=== PATIENT | male | born 1950 | race Two or more races ===

== ENCOUNTER → 2024-08-14 | Outpatient (CLI) | payer MEDICARE, MEDICAID, SELFPAY ==
--- NOTE | 2024-08-14 13:00 | XR_ITS ---
Examination: MRI lumbar spine without contrast Date and time of exam: August 14, 2024 1311 hrs. Indications: Lower back pain radiating down both legs 9 months Technique: Multiple MRI axial and sagittal sections lumbar spine. Sagittal T2-weighted images, TR 3500, TE 118 T1 weighted transverse sections, TR 688 T8.5, T2-weighted sagittal sections T1 weighted sagittal sections TR 621, TE 30 T2 axial sections, TR 4, 190, TE 84. Findings: Satisfactory alignment lumbar vertebral bodies on the lateral view Mild to moderate disc narrowing L3-L4, L4-L5 Diffuse lumbar disc desiccation No lumbar fracture L5-S1 3 mm central lumbar disc bulge L4-L5 6 mm central lumbar disc bulge extending to the foraminal regions with mild right L4 ganglionic compression L3-L4 5 mm foraminal disc bulges but no ganglionic compression L2-L3 no disc protrusion L1-L2 no disc protrusion Impression: L4-L5 6 mm central lumbar disc bulge extending to the right foraminal region with mild right L4 ganglionic compression
== END | disposition home or self-care (01) ==
LOC: SMRI 12:21
PROVIDERS: PCP Internal Medicine; Referring Provider Internal Medicine; Visit Provider Internal Medicine
DX: M51.369 Other intervertebral disc degeneration, lumbar region without mention of lumbar back pain or lower extremity pain (principal); G95.20 Unspecified cord compression
CPT/HCPCS: 72148

== ENCOUNTER 2024-11-02 17:19 | Inpatient (IN) | payer MEDICARE, MEDICAID, SELFPAY ==
[2024-11-02 17:30] VITALS: BP 122/73; PULSE 86; RESP 19; TEMP 37.1; O2SAT 96; BMI 28.8
--- NOTE | 2024-11-02 17:35 | XR_ITS ---
Examination: PA lateral chest 2 views TECHNIQUE: Upright PA lateral chest 2 views Exam date and time: November 02, 2024 at 1805 hours Comparison April 22, 2004 INDICATIONS: Shortness of breath coughing fatigue today. FINDINGS: COPD with significant hyperexpansion No major cardiac enlargement Stable granuloma in the left lung Interval bibasilar and lingular segment pneumonia IMPRESSION: COPD Interval bibasilar and lingular segment pneumonia
--- NOTE | 2024-11-02 17:36 | PD.EDRME ---
Rapid Medical Screening Exam RME Arrival date/time: 11/02/24 17:19 74-year-old male with COPD presents to the emergency department today complaints of shortness of breath, cough, fatigue Chief Complaint: Shortness of Breath/Dyspnea Time Seen by Provider: 11/02/24 17:32 Vital signs: Vital Signs Temperature 98.7 F 11/02/24 17:30 Pulse Rate 86 11/02/24 17:30 Respiratory Rate 19 11/02/24 17:30 Blood Pressure 122/73 11/02/24 17:30 Pulse Oximetry (%) 96 11/02/24 17:30 Oxygen Delivery Method Room Air 11/02/24 17:30
[2024-11-02 17:56] LABS: Lactate (Lactic Acid) 1.3 mMol/L (0.4-2.0)
[2024-11-02 17:59] LABS: Basophils # (Auto) 0.1 Thou/mm3 (0.0-0.2); Basophils % (Auto) 1 % (0-2.5); Eosinophils % (Auto) 0 % (0-10); Hematocrit 41.9 % (41.0-53.0); Hemoglobin 14.3 g/dL (13.5-16.0); Immature Granulocytes % (Auto) 3 % (0-0); Immature Granulocytes Auto 0.41 Thou/mm3 (0.00-0.00); Lymphocytes % (Auto) 20 % (10-50); Mean Corpuscular HGB Conc 34.1 g/dl (31.0-37.0); Mean Corpuscular Hemoglobin 32.6 pg (25.0-35.0); Mean Corpuscular Volume 96 fL (80-100); Monocytes # (Auto) 0.9 Thou/mm3 (0.0-0.8); Monocytes % (Auto) 6 % (0-12); Neutrophils % (Auto) 71 % (37-80); Nucleated Red Blood Cell % 0 /100 WBC (0); Platelet Count 266 Thou/mm3 (140-440); RDW Standard Deviation 42.4 fL (35.1-43.9); Red Blood Count 4.38 Miln/mm3 (4.50-5.90); White Blood Count 15.5 Thou/mm3 (3.8-10.6)
[2024-11-02 18:27] LABS: Alanine Aminotransferase 31 U/L (10-49); Albumin, Serum 4.4 gm/dL (3.4-4.8); Albumin/Globulin Ratio 1.5 (1.2-2.2); Alkaline Phosphatase 89 U/L (46-116); Anion Gap 11 (7-16); Aspartate Amino Transferase 29 U/L (0-34); BUN/Creatinine Ratio 14 Ratio (12-20); Bilirubin,Total 0.6 mg/dL (0.3-1.2); Blood Urea Nitrogen 17 mg/dL (9-23); Calcium 9.3 mg/dL (8.3-10.6); Calcium (Corrected) 9.3 mg/dL (8.5-10.1); Carbon Dioxide 24.6 mMol/L (20.0-31.0); Chloride 102 mMol/L (98-107); Creatinine (Component) 1.2 mg/dL (0.6-1.3); Estimated Creatinine Clearance 57.5 mL/min (>60); Glucose 115 mg/dL (74-106); Osmolality,Calculated 278 (275-295); Potassium 3.4 mMol/L (3.4-5.1); Procalcitonin 0.61 ng/ml (0.0-0.49); Sodium 138 mMol/L (136-145); Total Protein 7.4 gm/dL (5.7-8.2); Troponin I < 0.020 ng/mL (0.0-0.045); eGFR > 60 See Note
[2024-11-02 19:04] LABS: Collection Type, Urine Clean Catch
[2024-11-02 19:34] LABS: Bacteria,Urine 2+; Bilirubin,Urine Negative (Negative); Blood,Urine 2+ (Negative); Clarity,Urine Turbid (Clear/Hazy); Color,Urine Yellow (Lt Yel-Yel); Culture Indicated,Urine Yes; Glucose, Urine Negative (Negative); Ketones,Urine Negative (Negative); Leukocyte Esterase,Urine Positive (Negative); Nitrite,Urine Positive (Negative); Protein,Urine 1+ (Neg - Trace); RBC,Urine 7 /hpf (0-3); Specific Gravity,Urine 1.017 (1.001-1.035); Squamous Epithelial Cell,Urine 4 /hpf (0-5); WBC,Urine 98 /hpf (0-5)
--- NOTE | 2024-11-02 20:32 | EDNOTE_ITS ---
ED SOB =RME/HPI General Chief Complaint: Shortness of Breath/Dyspnea Stated Complaint: SOB, Body aches, shaking all over Time Seen by Provider: 11/02/24 17:32 Source: patient and family Arrival date/time: 11/02/24 17:19 Mode of arrival: ambulatory Limitations: no limitations RME / HPI RME / HPI Narrative: 11/02/24 17:19 74-year-old male with COPD presents to the emergency department today complaints of shortness of breath, cough, fatigue. Dr. Stokes?s Main ED Evaluation: 74-year-old Bengali-speaking male with history of COPD who presents to the Emergency Department for further evaluation of shortness of breath, per PCP. A family member provides additional history, reporting that the patient has experienced a fever for the past three days, along with progressive weakness, requiring more assistance than usual to stand up. The patient also experienced one fall during this period. The family also notes episodes of confusion, where the patient has been talking but not making sense at times. In addition, the patient himself reports experiencing painful urination. The patient has a history of chronic mobility issues, including shakiness, difficulty standing due to two bulging discs and chronic bilateral lower extremity nerve discomfort. Related Data Home Medications ?Medication ?Instructions ?Recorded ?Confirmed tamsulosin 0.4 mg capsule 0.4 mg PO BID 04/27/1812/03 finasteride 1 mg tablet 1 mg PO QDAY 07/11/22 Previous Rx's ?Medication ?Instructions ?Recorded ciprofloxacin HCl 500 mg tablet 500 mg PO BID #14 tabs 12/05/23 (Cipro) hydrocodone 5 mg-acetaminophen 325 1 tab PO Q6H PRN pa in #20 tabs 12/05/23 mg tablet Allergies Allergy/AdvReac Type Severity Reaction Status Date / Time No Known Allergies Allergy Verified 11/02/24 17:24 Review of Systems Review of Systems Systems Reviewed: All systems reviewed, normal except as documented Past Medical History Past Medical History NEUROLOGIC: Negative Neurological Disorders or Seizures CARDIAC: Positive Cardiac Disorders and Hypertension (STOP 2018); Negative Congestive Heart Failure, Edema, Cellulitis or Varicose Veins RESPIRATORY: Positive Pneumonia (HOSP 04/05 ALONG WITH KIDNEY STONES PAIN); Negative Chronic Obstructive Pulmonary Disease (COPD), Tuberculosis, Pulmonary Embolism or Sleep Apnea GASTROINTESTINAL: Negative Gastrointestinal Disorders, Hepatitis or Colorectal Cancer GENITOURINARY: Positive Genitourinary Disorders, Kidney Stones and Benign Prostatic Hyperplasia (TAKES MED); Negative Renal Disease or Prostate Cancer REPRODUCTIVE: Negative Testicular Cancer MUSCULOSKELETAL: Positive Musculoskeletal Disorders and Arthritis; Negative Bone Cancer ENDOCRINE: Negative Endocrine Disorders, Diabetes Mellitus Type 1 or Diabetes Mellitus Type 2 HEMATOLOGIC: Negative Blood Disorders OTHER HISTORY: Positive Hospitalization (04/05 ALSO FOR KIDNEY STONE) and Measles; Negative Autoimmune Disease, Shingles, Falls, Blood Transfusions, Blood Transfusion Reaction, Anesthesia Reactions, Organ Transplant, Chemotherapy, MRSA, Chicken Pox, Mumps, Cancer, Colorectal Cancer, Lung Cancer, Prostate Cancer or Testicular Cancer Family History FAMILY HISTORY: Positive Family Gastrointestinal Problems (BROTHER (CIRRHOSIS)) and Family Cancer (BROTHER (LUNG)); Negative Family Psychiatric Problems, Family Respiratory Disorders, Family Cardiac Disorders, Family Surgery (UNKNOWN) or Family Anesthesia Reaction Surgical History SURGICAL: Positive Arthroscopy (MICHAEL KNEES); Negative Cardiac Surgery, Pacemaker, Endocrine Surgery, Ear Surgery, Abdominal Surgery, Joint Replacement, Vasectomy or Organ Transplant Social History SMOKING STATUS: Current some day smoker SUBSTANCE USE: does not use ED Exam Narrative Physical exam: GENERAL APPEARANCE: alert and oriented x 4, well-developed, well-nourished, no acute distress VITALS: All vitals were reviewed and the pulse ox is 96% on room air, which is normal according to my interpretation. HEENT: Normocephalic, atraumatic; pupils equal, round, reactive to light; EOMI; mucous membranes pink, moist; oropharynx clear NECK: Supple LUNGS: Coarse breath sounds throughout, with fine crackles noted at the bilateral lung bases. HEART: Regular rate, regular rhythm; normal S1, S2; no murmurs ABDOMEN: non distended; normal BS; soft, no tenderness, no guarding, no rebound; no masses, no organomegaly, no hernia BACK: no CVA tenderness EXTREMITIES: atraumatic; no edema NEUROLOGIC: awake; alert and oriented x4; cranial nerves II-XII grossly intact; no focal sensory or motor deficits PSYCHIATRIC: appropriate mood and affect SKIN: warm, dry, normal color; no rashes General Limitations: Present no limitations Course Course Course Narrative: CXR is ordered for determining etiology of shortness of breath. Quality Measures none Orders Category Date Time Status Bedside Influenza A&B Antigen Test NOW Care 11/02/24 17:35 Completed Cook Helper Meat STAT Care 11/02/24 20:43 Active EKG (ED ONLY) *Do not use* NOW Care 11/02/24 17:35 Completed IV [Insert IV] NOW Care 11/02/24 20:33 Active Strict Intake and Output Routine Care 11/02/24 20:43 Ordered EKG (ED Only) Stat Exams 11/02/24 17:35 Ordered XR chest 2V Stat Exams 11/02/24 17:35 Completed B-Type Natriuretic Peptide Stat Lab 11/02/24 21:19 Completed Blood Culture (Lab) Stat Lab 11/02/24 17:48 Received CBC Stat Lab 11/02/24 17:45 Completed Comprehensive Metabolic Panel Stat Lab 11/02/24 17:45 Completed LDH (Lactate Dehydrogenase) Stat Lab 11/02/24 21:19 Results Lactate (Lactic Acid) Stat Lab 11/02/24 17:45 Completed Lipase Stat Lab 11/02/24 21:19 Results Magnesium Stat Lab 11/02/24 21:19 Results Partial Thromboplastin Time Stat Lab 11/02/24 17:45 Completed Phosphorous Stat Lab 11/02/24 21:19 Results Procalcitonin Stat Lab 11/02/24 17:45 Completed Prothrombin Time with INR Stat Lab 11/02/24 17:45 Completed Troponin I Stat Lab 11/02/24 17:45 Completed Troponin I Stat Lab 11/02/24 21:19 Results UA, C/S IF [Urinalysis, C/S if Indicated] Stat Lab 11/02/24 18:51 Completed Urine Culture Stat Lab 11/02/24 18:51 Received Sodium Chloride 0.9% 1000 ml [Ns] 1,000 ml Med 11/02/24 20:43 Discontinued IV 999 mls/hr cefTRIAXone [Rocephin] 1,000 mg Med 11/02/24 20:34 Discontinued SODIUM CHLORIDE 0.9% (Popper) [NS 0.9% (Popper)] 50 ml IV X1 Vital Signs Vital signs: Vital Signs Temperature 98.7 F 11/02/24 17:30 Pulse Rate 86 11/02/24 17:30 Respiratory Rate 19 11/02/24 17:30 Blood Pressure 122/73 11/02/24 17:30 Pulse Oximetry (%) 96 11/02/24 17:30 Oxygen Delivery Method Room Air 11/02/24 17:30 Shortness of Breath / Dyspnea MDM Narrative MDM Narrative:: Differential diagnoses include sepsis secondary to pneumonia, urinary tract infection, sepsis with skin infection, or intra-abdominal infection, as well as influenza. 2039: Case discussed with Dr. Luna, hospitalist, who has accepted the patient for admission. Scribe Attestation: I, Emmett Galloway, am scribing for and in the presence of Dr. Stokes. Provider Notation: Although this document has been carefully reviewed, there may still be some phonetic and other typographical errors. These errors are purely grammatical due to imperfections in the software program and should not be construed in any way to compromise the substance of the patient's medical care during this visit. Patient data External records reviewed:: [facility] previous records Clinical information provided by:: patient Social determinants that could affect healthcare access:: none Patient has the following chronic illnesses:: see PMH How is presenting disease/condition affected by chronic disease/condition?: uneffected by Evaluation data The following diagnostics were reviewed and interpreted by me:: lab results and radiology exam(s) Lab and/or radiology exams considered but not ordered:: na Interpretation Summary: I personally reviewed the radiology data and agree with the radiologist's interpretation. Examination: PA lateral chest 2 views Exam date and time: November 02, 2024 at 1805 hours Comparison April 22, 2004 INDICATIONS: Shortness of breath coughing fatigue today. FINDINGS: COPD with significant hyperexpansion No major cardiac enlargement Stable granuloma in the left lung Interval bibasilar and lingular segment pneumonia IMPRESSION: COPD Interval bibasilar and lingular segment pneumonia Medications / Prescriptions Medications or Prescriptions considered but not ordered:: na Medication administrations:: Medication Administration History Acetaminophen (Acetaminophen 325 Mg Tablet) 650 mg PO Q6H PRN PRN Reason: Fever >101.5 Stop: 12/02/24 21:08 Albuterol/Ipratropium (Albuterol/Ipratropium (Duoneb) Rt Roseann 3 Ml Nebu) 3 ml INH Q6HRRT KECIA Stop: 12/02/24 21:34 Enoxaparin Sodium (Enoxaparin Sod Inj 40 Mg/0.4 Ml Syringe) 40 mg SC QDAY KECIA Stop: 11/17/24 08:59 Sodium Chloride (Ns) 1,000 mls @ 75 mls/hr IV .[id number] KECIA Stop: 12/02/24 21:14 Ceftriaxone Sodium 1,000 mg/ (Sodium Chloride) 50 mls @ 100 mls/hr IV QDAY KECIA Stop: 11/10/24 08:59 Azithromycin 500 mg/ Sodium (Chloride) 250 mls @ 250 mls/hr IV QDAY@2100 KECIA Stop: 11/10/24 20:59 Azithromycin 500 mg/ Sodium (Chloride) 250 mls @ 250 mls/hr IV X1 ONE Stop: 11/02/24 22:44 Tamsulosin HCl (Tamsulosin Hcl 0.4 Mg Capsule) 0.4 mg PO BID [facility] Stop: 12/03/24 08:59 Discontinued Medications Ceftriaxone Sodium 1,000 mg/ (Sodium Chloride) 50 mls @ 100 mls/hr IV X1 ONE Stop: 11/02/24 21:03 Last Admin: 11/02/24 21:58 Dose: 100 mls/hr Documented By: JUMANA Sodium Chloride (Ns) 1,000 mls @ 999 mls/hr IV .Q1H1M ONE Stop: 11/02/24 21:43 Last Admin: 11/02/24 21:56 Dose: 999 mls/hr Documented By: JUMANA as above, if any Consultations Consultation(s) initiated? (list below): Yes Consultation #1 (Physician, Specialty, Details): See narrative Time: 20:42 Diagnosis Shortness of Breath Differential Diagnosis: other (see narrative) Most likely diagnosis given after review of the tests above:: see below Admission Indicated Admission indicated?: indicated Admission Request Was there a request for admission?: Yes Admission Attestation Admission request attestation: Discussed case with [] from Hospitalist service regarding admission. Discussed patients ED course, exam findings, labs, and radiology results. The Hospitalist [agrees,declines] to accept the patient for admission. Disposition Plan Disposition Plan: Admit Discharge Plan Plan Patient Disposition: Admit Acute Care w/in Hospital Patient condition on transfer: Stable Problem List Clinical Impression: Bilateral pneumonia, COPD (chronic obstructive pulmonary disease)
[2024-11-02 20:36] VITALS: BP 119/74; PULSE 60; RESP 19; TEMP 36.9; O2SAT 99
--- NOTE | 2024-11-02 21:20 | ESHP_ITS ---
Documentation for date of: 11/02/24 [facility] History of Present Illness History of present illness: This is a 71-year-old male PMHx of COPD, HTN, BPH, nephrolithiasis, presenting with 1 month of progressive fatigue followed by work of dry cough and SOB. He lives with his and his daughter who is the sole ceramic tile installer. He has been complaining of tiring easily doing chores around the house and low energy over the last month. Over the last week he has been having dry cough and SOB, associated with few episodes of fever and chills. He is a extensive history of smoking greater than 40-year pack history, quit recently after being diagnosed with COPD (no home oxygen). Although admits he currently smokes a few cigarettes here and there. He takes home inhaler daily which hasn't been helping over the last few weeks. No recent travel or sick exposure. He mostly stays at home. Denies headaches, falls, trauma, chest pain, palpitations, abdominal pain, N/V/D/C. Has had dark urine over the last 2 weeks but denies dysuria, hematuria, urinary urgency or frequency. ED COURSE: Vitals within normal limit. WBC 15.5 with left shift, otherwise CBC WNL. Calc 0.61. Otherwise chemistry panel normal including troponin, TSH, creatinine, GLUCOSE, lactic acid, and LFTs. UA turbid, with WBC 98, LE/nitrite positive. CXR showed COPD and bibasilar and lingular segment pneumonia. ED gave CEFTRIAXONE x 1. He was admitted for pneumonia. PMHx: COPD, HTN, BPH, nephrolithiasis PSHx: Bilateral knee surgery. MEDS: Inhaler for COPD, and FLOMAX. ALLERGIES: NKA. FHx: First-degree relative with alcoholic cirrhosis, CHF and lung cancer. SH: 40-year pack smoking history, currently smokes occasionally. Previous heavy alcohol use. Denies drug use including marijuana. Exam Vital Signs Temp Pulse Resp BP Pulse Ox O2 Del Method 98.5 F 60 19 119/74 99 Room Air 11/02/24 20:36 11/02/24 20:36 11/02/24 20:36 11/02/24 20:36 11/02/24 20:36 11/02/24 20:36 Narrative Exam GENERAL * Normal appearing elderly male, no apparent distress. HEENT * NCAT.?SERG. Oral mucosa is moist. Patent Nares NECK * Supple, nontender, no thyromegaly, no meningismus, no JVD, no step offs CHEST * RRR, no m/g/r * Wheezing and coarse breath sounds bilaterally. * Symmetrical chest rise. No intercostal subcostal retraction * Atraumatic, nontender, no crepitus, symmetrical expansion. ABDOMEN * Soft, flat, nontender. No guarding/rebound tenderness/masses. * Bowel sounds presents EXTREMITIES * Nontender, no cyanosis, no edema * No edema/cyanosis.? SKIN * Warm and dry, no jaundice/rashes. NEUROMUSCULAR * No lumbar or midline, no CVA, no paraspinal muscle spasm or tenderness. * Moves all 4 extremities well, with full ROM and good CSM. * SIDDIQI x4, CN II-XII grossly intact. * No focal neurologic deficits. PSYCHIATRY * Normal mood and affect, cooperative, no SI or HI or hallucinations. Results: Labs 11/02/24 17:45 11/02/24 17:45 Labs: Short CBC 11/02/24 Range/Units 17:45 WBC 15.5 H (3.8-10.6) Thou/mm3 Hgb 14.3 (13.5-16.0) g/dL Hct 41.9 (41.0-53.0) % Plt Count 266 (140-440) Thou/mm3 BMP 11/02/24 17:45 Sodium 138 Potassium 3.4 Chloride 102 Carbon Dioxide 24.6 BUN 17 Creatinine 1.2 Glucose 115 H Calcium 9.3 Cardiac Enzymes 11/02/24 Range/Units 17:45 Troponin I < 0.020 (0.0-0.045) ng/mL Liver Function 11/02/24 Range/Units 17:45 Total Bilirubin 0.6 (0.3-1.2) mg/dL AST 29 (0-34) U/L ALT 31 (10-49) U/L Alkaline Phosphatase 89 (46-116) U/L Albumin 4.4 (3.4-4.8) gm/dL Urine 11/02/24 Range/Units 18:51 Urine Color Yellow (Lt Yel-Yel) Urine Clarity Turbid A (Clear/Hazy) Urine pH 6.0 (5.0-7.0) Ur Specific Marshall 1.017 (1.001-1.035) Urine Protein 1+ A (Neg - Trace) Urine Glucose (UA) Negative (Negative) Quality Measures Quality Measures none Advance care planning discussed with:: patient Medications Home Medications and Allergies Home Medications ?Medication ?Instructions ?Recorded ?Confirmed ?Type tamsulosin 0.4 mg capsule 0.4 mg PO BID 04/27/1812/03 History finasteride 1 mg tablet 1 mg PO QDAY 07/11/22 History Allergies Allergy/AdvReac Type Severity Reaction Status Date / Time No Known Allergies Allergy Verified 11/02/24 17:24 Visit Medications Acetaminophen (Acetaminophen 325 Mg Tablet) 650 mg PO Q6H PRN PRN Reason: Fever >101.5 Stop: 12/02/24 21:08 Enoxaparin Sodium (Enoxaparin Sod Inj 40 Mg/0.4 Ml Syringe) 40 mg SC QDAY KECIA Stop: 11/17/24 08:59 Sodium Chloride (Ns) 1,000 mls @ 999 mls/hr IV .Q1H1M ONE Stop: 11/02/24 21:43 Sodium Chloride (Ns) 1,000 mls @ 75 mls/hr IV .[id number] KECIA Stop: 12/02/24 21:14 Ceftriaxone Sodium 1,000 mg/ (Sodium Chloride) 50 mls @ 100 mls/hr IV QDAY KECIA Stop: 11/10/24 08:59 Azithromycin 500 mg/ Sodium (Chloride) 250 mls @ 250 mls/hr IV QDAY KECIA Stop: 11/09/24 21:10 Discontinued Medications Ceftriaxone Sodium 1,000 mg/ (Sodium Chloride) 50 mls @ 100 mls/hr IV X1 ONE Stop: 11/02/24 21:03 Assessment & Plan Plan In summary: 74-year-old male with PMHx of COPD (no home oxygen), HTN, BPH, nephrolithiasis, presenting with shortness of breath and cough. Admitted for pneumonia. Community-acquired pneumonia COPD Presenting with 1 month of fatigue, SOB, cough and fever over the last week. Diagnosed with COPD last year, no home oxygen, uses inhaler. Wheezing and coarse breath sound bilaterally on exam. Has leukocytosis and elevated PRO-MARIANGEL on admission. CXR showed pneumonia bilaterally. PSI/PORT score indicates Risk Class III, 0.9-2.8% mortality. Will admit given history of COPD and extensive pneumonia on x-ray. ? Continue CEFTRIAXONE and AZITHROMYCIN (11/02 to present) ? Continue DuoNebs q.6h. ? Daily labs ? Pending cultures ? Pending influenza, COVID Asymptomatic UTI UA positive for WBCs, LE, nitrites. Complains of dark urine for 2+ weeks, likely dehydrational. No dysuria, hematuria, urinary urgency or frequency. ? Continue NS maintenance at 75 cc/H ? Covered with CEFTRIAXONE as above ? Pending urine culture BPH ? Continued home TAMSULOSIN 0.4 mg BID. Tobacco use 40+ smoking history, quit when he was diagnosed with COPD last year. Currently smokes 1 to 2 cigarettes every other day. First-degree relative (brother) with lung cancer. Currently working on quitting smoking. ? Recommended tobacco cessation ? Likely will need a NICOTINE patch Hx nephrolithiasis Follow-up with urology outpatient. Currently asymptomatic. No indication for intervention at this time. Health maintenance Diet: Cardiac GI prophylaxis: Not indicated DVT prophylaxis: LOVENOX Antibiotics: CEFTRIAXONE and AZITHROMYCIN CODE STATUS: Full code Disposition: Treating pneumonia. Patient case was discussed with attending, Ramon Luna MD. Yolis Beauchamp DO PGYI Attending Provider Attestation/Addendum Pt was evaluated and plan formulated together with the housestaff team. I have reviewed the residents note above and agree with most of its content. Please refer to the residents note for additional details.
--- NOTE | 2024-11-02 21:26 | EVENTNT_ITS ---
Documentation for date of: 11/02/24 Event Note Event Note: A 74-year-old male presented to the ER with the chief complaint of progressive weakness, difficulty standing, and a recent fall. The patient has been experiencing symptoms for approximately a week, including generalized weakness, loss of appetite, fever for the first three days, chills, and unsteady gait requiring assistance. He denies significant cough but has had persistent diarrhea. His family reports he has been feeling cold and has had intermittent confusion, including speaking incoherently at times. He has also noted dysuria. There are no reports of chest pain or significant shortness of breath. The patient has a history of COPD, hypertension, and arthritis. He has undergone a hernia repair, multiple knee surgeries, treatment for kidney stones, and a prostatectomy. He is currently on medication for hypertension but does not use home oxygen, relying solely on an inhaler for COPD management. He has a significant smoking history of approximately 57 years but has recently reduced consumption to occasional cigarettes with an attempt to quit. He does not drink alcohol. His functional status has declined, requiring increased assistance with mobility due to chronic lower extremity discomfort attributed to bulging discs and nerve issues. In the Emergency Department, the patient?s vital signs were recorded as temperature 98.7?F, heart rate 86 bpm, respiratory rate 19, and blood pressure 122/73 mmHg. Laboratory results showed an elevated WBC of 15.5, hemoglobin 14.3, platelets 266, BUN 17, creatinine 1.2, and procalcitonin 0.61. Urinalysis revealed turbid urine with WBC 98 and RBC 7. Imaging demonstrated findings consistent with COPD and interval development of bibasilar and lingular segment pneumonia. The patient was admitted for further management. #Sepsis secondary to pneumonia and urinary tract infection * Assessment: The patient presents with generalized weakness, fever, chills, intermittent confusion, and dysuria, which, along with leukocytosis (WBC 15.5), elevated procalcitonin (0.61), and imaging findings of pneumonia, suggest an infectious process. Urinalysis findings of turbid urine with WBC 98 and RBC 7 indicate a concurrent UTI. Given his age, functional decline, and COPD history, he is at higher risk for complications. The absence of significant hypoxia is reassuring but requires monitoring. * Plan: * Initiate broad-spectrum IV antibiotics (ceftriaxone plus azithromycin). * Continue supportive care with IV fluids to optimize perfusion and hydration. * Monitor for signs of worsening sepsis. * Obtain blood and urine cultures. #Acute on chronic COPD exacerbation * Assessment: The patient?s pneumonia and systemic inflammatory response may contribute to a COPD exacerbation. His history of COPD and smoking increases his risk. Imaging showed findings consistent with COPD. * Plan: * Continue inhaled bronchodilator therapy (Duoneb). * Consider systemic glucocorticoids. * Monitor oxygen requirements; maintain SpO2 between 88?92%. * Encourage smoking cessation support. #Hypertension (well-controlled) * Assessment: No reported hypertensive urgency or symptoms; BP stable at 122/73 mmHg in ED. * Plan: * Continue home antihypertensive regimen. * Monitor BP trends during hospitalization, adjusting medications if needed. #Smoking history with recent reduction * Assessment: Long-standing history of smoking with recent efforts to quit; significant risk factor for COPD and pneumonia. * Plan: * Provide smoking cessation counseling and nicotine replacement therapy as needed. * Reinforce long-term benefits of cessation for respiratory and overall health. DVT porphylaxis: Lovenox
[2024-11-02 21:44] VITALS: PULSE 95
[2024-11-02 21:44] LABS: INR 1.1 (0.9-1.3); Partial Thromboplastin Time 30.7 Seconds (22.0-36.0); Prothrombin Time 11.8 Seconds (9.0-12.2)
[2024-11-02 21:54] LABS: B-Type Natriuretic Peptide < 20 pg/mL (0-100)
[2024-11-02] MEDS: SODIUM CHLORIDE 0.9% 1000 ML 1,000 ML 999 ML IV (21:56)
[2024-11-02] MEDS: cefTRIAXone 1,000 MG in SODIUM CHLORIDE 0.9% (Popper) 50 ML 100 MG IV (21:58)
[2024-11-02 22:03] LABS: Lipase 34 U/L (12-53); Magnesium 1.9 mg/dL (1.6-2.6); Phosphorous 1.5 mg/dL (2.4-5.1); Troponin I < 0.020 ng/mL (0.0-0.045)
[2024-11-02 22:12] VITALS: BP 114/74; PULSE 88; RESP 19; TEMP 37.8; O2SAT 99
[2024-11-02] MEDS: ALBUTEROL/IPRATROPIUM (Duoneb) RT SOL 3 ML NEBU INH (22:12)
[2024-11-02 22:18] VITALS: PULSE 88; RESP 18; O2SAT 92
[2024-11-02 22:30] LABS: LDH (Lactate Dehydrogenase) 203 U/L (120-246)
[2024-11-02] MEDS: AZITHROMYCIN INJ 500 MG in SODIUM CHLORIDE 0.9% 250 ML 250 ML 250 MG IV (22:36)
[2024-11-02] MEDS: SODIUM CHLORIDE 0.9% 1000 ML 1,000 ML 75 ML IV (23:51)
[2024-11-03] VITALS (10 sets, daily range): BP systolic 109–139; BP diastolic 65–78; PULSE 64–86; RESP 16–20; TEMP 36.1–37.1; O2SAT 88–97; BMI 29.4; BMI 29.2
[2024-11-03] MEDS: ALBUTEROL/IPRATROPIUM (Duoneb) RT SOL 3 ML NEBU INH ×4 (00:15→18:29)
[2024-11-03 05:23] LABS: Basophils # (Auto) 0.1 Thou/mm3 (0.0-0.2); Basophils % (Auto) 1 % (0-2.5); Eosinophils % (Auto) 0 % (0-10); Hematocrit 35.8 % (41.0-53.0); Hemoglobin 12.3 g/dL (13.5-16.0); Immature Granulocytes % (Auto) 4 % (0-0); Immature Granulocytes Auto 0.59 Thou/mm3 (0.00-0.00); Lymphocytes # (Auto) 2.9 Thou/mm3 (1.0-4.8); Lymphocytes % (Auto) 18 % (10-50); Mean Corpuscular HGB Conc 34.4 g/dl (31.0-37.0); Mean Corpuscular Volume 96 fL (80-100); Monocytes # (Auto) 1.1 Thou/mm3 (0.0-0.8); Monocytes % (Auto) 7 % (0-12); Neutrophils # (Auto) 11.1 Thou/mm3 (1.8-7.7); Neutrophils % (Auto) 70 % (37-80); Nucleated Red Blood Cell % 0 /100 WBC (0); Platelet Count 259 Thou/mm3 (140-440); RDW Standard Deviation 42.5 fL (35.1-43.9); Red Blood Count 3.73 Miln/mm3 (4.50-5.90); White Blood Count 15.8 Thou/mm3 (3.8-10.6)
[2024-11-03 05:45] LABS: Anion Gap 11 (7-16); BUN/Creatinine Ratio 13 Ratio (12-20); Blood Urea Nitrogen 14 mg/dL (9-23); Calcium 8.5 mg/dL (8.3-10.6); Carbon Dioxide 24.4 mMol/L (20.0-31.0); Chloride 106 mMol/L (98-107); Creatinine (Component) 1.1 mg/dL (0.6-1.3); Estimated Creatinine Clearance 61.3 mL/min (>60); Glucose 117 mg/dL (74-106); Osmolality,Calculated 282 (275-295); Sodium 141 mMol/L (136-145); eGFR > 60 See Note
[2024-11-03] MEDS: TAMSULOSIN HCL 0.4 MG CAPSULE PO ×2 (08:12→20:16)
[2024-11-03] MEDS: ENOXAPARIN SOD INJ 40 MG/0.4 ML SYRINGE SC (08:12)
[2024-11-03] MEDS: POTASSIUM CHL 10 mEq IVPB 10 MEQ/100 ML BAG 100 MEQ IV ×4 (08:13→12:38)
[2024-11-03] MEDS: POTASSIUM PHOS 22.5 MMOL in SODIUM CHLORIDE 0.9% 500 ML 500 ML 82.778 MMOL IV (09:13)
--- NOTE | 2024-11-03 09:57 | XR_ITS ---
Examination: CT abdomen and pelvis without contrast. Coronal 3-D reconstructions. Sagittal 2-D reconstructions. Date and time of exam:November 03, 2024 1142 hours Comparison April 02, 2022 INDICATIONS: Epigastric pain beginning 5 days ago CTDI: vol (mGy): 8.65 DLP: (mGycm): 489 Technique: Axial images of the abdomen have been obtained, 3 mm slice thickness Intravenous contrast material has not been administered. Low dose protocols were performed. One or more of the following dose reduction techniques were used; automated exposure control, adjustment of the mA and/or KV according to patient size, use of iterative reconstruction technique. Findings: Pneumonia in the lingular segment left upper lobe and left base Significant fatty infiltration throughout the liver No gallstones Spleen is not enlarged No pancreatic or adrenal mass Multiple right renal cysts No hydronephrosis or ureteral calculi Abdominal aortic calcification no aneurysmal dilatation Normal appendix Small bowel loops mildly distended Small anterior bladder diverticulum anteriorly, 25 mm No prostatomegaly Fat-containing inguinal hernias IMPRESSION: Pneumonia in the lingular segment left upper lobe and left base Mild small bowel ileus Consider hepatobiliary sonography follow-up
[2024-11-03] MEDS: NAPH,KPH MBDB 1 PACKET (1.5 GM) PO (10:03)
[2024-11-03] MEDS: POTASSIUM CHLORIDE 20 mEq TABCR 40 MEQ PO (10:03)
--- NOTE | 2024-11-03 10:16 | PC.SS ---
Initial assessment: Patient is a 74-year-old male admitted for pneumonia. The patient is Vietnamese speaking. Alert and oriented to self, place and situation. The patient confirmed home demographic information. Patient informs he lives with his daughter Shalini and spouse Karol at daughter's home. Patient assigned daughterShalini as his emergency contact. The patient informs he is primary independent with ADL's. Patient informs he has a cane at home if needed. Patient denies having any home oxygen. Patient PCP is Dr. Tex Lui. Pharmacy is [facility] in [place]. The discharge plan was discussed and is to return home, family able to transport home. D/c plan: Home Next of Kin: daughterShalini
--- NOTE | 2024-11-03 11:15 | PC.SS ---
SS update: Received a call from PT Felix regarding outpatient PT referral for the patient. PT referral faxed out of behalf of the patient for outpatient PT services.
--- NOTE | 2024-11-03 13:55 | PC.PT ---
PT eval only. Patient is safe to ambulate in the fletcher and to the bathroom while using the FWW and 1 staff assist for safety. RN made aware.
--- NOTE | 2024-11-03 14:47 | PC.SS ---
Rounding note: pending CT. Possible d/c tomorrow.
--- NOTE | 2024-11-03 15:31 | PD.RESPRO ---
Documentation for date of: 11/03/24 Subjective Subjective Interval history: Patient was admitted overnight for pneumonia complicated by COPD exacerbation. Morning labs showed mild increase in WBC from 15.5-15.8, hemoglobin down trended from 14.3-12.3. During physical exam this morning patient was complaining of dysuria and suprapubic pain. Having history of nephrolithiasis, abdomen pelvis CT was ordered which indicated multiple right renal cysts, no prostatomegaly, no hydronephrosis or ureteral calculi. Exam Vital Signs Temp Pulse Resp BP Pulse Ox O2 Del Method 97.5 F 69 16 109/70 97 Room Air 11/03/24 12:00 11/03/24 12:11/03/24 12:11/03/24 12:11/03/24 12:11/03/24 12:00 Narrative Exam Constitutional: well-developed, well-nourished, in no acute distress, lying in bed HEENT: NCAT, EOMI, reactive round pupils b/l, patent nares b/l, moist mucous membranes Lung: CTAB, no wheezing, no rhonchi Heart: Regular S1S2, no murmurs, gallops, or rubs Abdomen: Soft, non-distended, mild lower abdomen tenderness on palpation, bowel sounds present Extremities: No cyanosis, clubbing, or edema, LE pulses present b/l Neurologic: No focal sensory or motor deficits noted, AOx3, appropriate affect Skin: Warm, dry, no lesions or rashes noted Objective Labs 11/04/24 04:28 11/04/24 04:28 Labs: Laboratory Results - last 24 hr 11/02/24 11/02/24 11/02/24 17:45 18:51 21:19 WBC 15.5 H RBC 4.38 L Hgb 14.3 Hct 41.9 MCV 96 MCH 32.6 MCHC 34.1 RDW Std Deviation 42.4 Plt Count 266 Neut % (Auto) 71 Lymph % (Auto) 20 [place] % (Auto) 6 Eos % (Auto) 0 Baso % (Auto) 1 Neut # (Auto) 11.0 H Lymph # (Auto) 3.0 [place] # (Auto) 0.9 H Eos # (Auto) 0.0 Baso # (Auto) 0.1 Immature Gran # (Auto) 0.41 H Absolute Nucleated RBC 0.00 Immature Gran % 3 H Nucleated RBC % 0 PT 11.8 INR 1.1 APTT 30.7 Sodium 138 Potassium 3.4 Chloride 102 Carbon Dioxide 24.6 Anion Gap 11 BUN 17 Creatinine 1.2 Estim Creat Clear Calc 57.5 L eGFR > 60 BUN/Creatinine Ratio 14 Glucose 115 H Calculated Osmolality 278 Lactic Acid 1.3 Calcium 9.3 Corrected Calcium 9.3 Phosphorus 1.5 L Magnesium 1.9 Total Bilirubin 0.6 AST 29 ALT 31 Alkaline Phosphatase 89 Lactate Dehydrogenase 203 Troponin I < 0.020 < 0.020 B-Natriuretic Peptide < 20 Total Protein 7.4 Albumin 4.4 Globulin 3.0 Albumin/Globulin Ratio 1.5 Lipase 34 Procalcitonin 0.61 H Ur Collection Type Clean Catch Urine Color Yellow Urine Clarity Turbid A Urine pH 6.0 Ur Specific [place] 1.017 Urine Protein 1+ A Urine Glucose (UA) Negative Urine Ketones Negative Urine Blood 2+ A Urine Nitrite Positive Urine Bilirubin Negative Urine Urobilinogen (Auto) 8.0 Ur Leukocyte Esterase Positive Urine RBC 7 H Urine WBC 98 H Ur Squamous Epith Cells 4 Urine Bacteria 2+ A Ur Culture Indicated? Yes 11/03/24 04:34 WBC 15.8 H RBC 3.73 L Hgb 12.3 L D Hct 35.8 L MCV 96 MCH 33.0 MCHC 34.4 RDW Std Deviation 42.5 Plt Count 259 Neut % (Auto) 70 Lymph % (Auto) 18 [place] % (Auto) 7 Eos % (Auto) 0 Baso % (Auto) 1 Neut # (Auto) 11.1 H Lymph # (Auto) 2.9 [place] # (Auto) 1.1 H Eos # (Auto) 0.0 Baso # (Auto) 0.1 Immature Gran # (Auto) 0.59 H Absolute Nucleated RBC 0.00 Immature Gran % 4 H Nucleated RBC % 0 PT INR APTT Sodium 141 Potassium 3.0 L Chloride 106 Carbon Dioxide 24.4 Anion Gap 11 BUN 14 Creatinine 1.1 Estim Creat Clear Calc 61.3 eGFR > 60 BUN/Creatinine Ratio 13 Glucose 117 H Calculated Osmolality 282 Lactic Acid Calcium 8.5 Corrected Calcium Phosphorus Magnesium Total Bilirubin AST ALT Alkaline Phosphatase Lactate Dehydrogenase Troponin I B-Natriuretic Peptide Total Protein Albumin Globulin Albumin/Globulin Ratio Lipase Procalcitonin Ur Collection Type Urine Color Urine Clarity Urine pH Ur Specific [place] Urine Protein Urine Glucose (UA) Urine Ketones Urine Blood Urine Nitrite Urine Bilirubin Urine Urobilinogen (Auto) Ur Leukocyte Esterase Urine RBC Urine WBC Ur Squamous Epith Cells Urine Bacteria Ur Culture Indicated? Quality Measures Quality Measures none Advance care planning discussed with:: other Assessment & Plan Assessment Current Active Medications: Generic Name Dose Route Start Last Admin Trade Name Freq PRN Reason Stop Dose Admin Acetaminophen 650 mg 11/02/24 21:09 Acetaminophen 325 Mg Tablet PO 12/02/24 21:08 Q6H PRN Fever >101.5 Albuterol/Ipratropium 3 ml 11/02/24 21:35 11/03/24 12:25 Albuterol/Ipratropium (Duoneb) Rt Roseann 3 Ml Nebu INH 12/02/24 21:34 3 ml Q6HRRT KECIA Administration Enoxaparin Sodium 40 mg 11/03/24 09:00 11/03/24 08:12 Enoxaparin Sod Inj 40 Mg/0.4 Ml Syringe SC 11/17/24 08:59 40 mg QDAY KECIA Administration Sodium Chloride 1,000 mls @ 75 mls/hr 11/02/24 21:15 11/02/24 23:51 Ns IV 12/02/24 21:14 75 mls/hr .[id number] KECIA Administration Ceftriaxone Sodium 1,000 mg/ 50 mls @ 100 mls/hr 11/03/24 21:00 Sodium Chloride IV 11/10/24 20:59 QDAY@2100 KECIA Azithromycin 500 mg/ Sodium 250 mls @ 250 mls/hr 11/03/24 21:00 Chloride IV 11/10/24 20:59 QDAY@2100 KECIA Tamsulosin HCl 0.4 mg 11/03/24 09:00 11/03/24 08:12 Tamsulosin Hcl 0.4 Mg Capsule PO 12/03/24 08:59 0.4 mg BID KECIA Administration Plan 74-year-old male with PMHx of COPD (no home oxygen), HTN, BPH, nephrolithiasis, presenting with shortness of breath and cough. Admitted for pneumonia. #Community-acquired pneumonia #COPD Presenting with 1 month of fatigue, SOB, cough and fever over the last week. Diagnosed with COPD last year, no home oxygen, uses inhaler. Wheezing and coarse breath sound bilaterally on exam. Has leukocytosis and elevated PRO-MARIANGEL on admission. CXR showed pneumonia bilaterally. PSI/PORT score indicates Risk Class III, 0.9-2.8% mortality. Will admit given history of COPD and extensive pneumonia on x-ray. ? Continue CEFTRIAXONE and AZITHROMYCIN (11/02 to present) ? Continue DuoNebs q.6h. ? Daily labs ? Pending cultures #Complicated UTI UA positive for WBCs, LE, nitrites. Complains of dark urine for 2+ weeks, likely dehydrational. No dysuria, hematuria, urinary urgency or frequency. ? Acetaminophen for pain and fever ? Continue with CEFTRIAXONE as above ? Pending urine culture #BPH Abdomen pelvis CT was negative for prostatomegaly ? Restart home TAMSULOSIN 0.4 mg BID. #Tobacco use 40+ smoking history, quit when he was diagnosed with COPD last year. Currently smokes 1 to 2 cigarettes every other day. First-degree relative (brother) with lung cancer. Currently working on quitting smoking. ? Recommended tobacco cessation ? Likely will need a NICOTINE patch #Hx nephrolithiasis Abdomen pelvis CT was negative for renal calculi and hydronephrosis ? Follow-up with urology outpatient. ? No indication for intervention at this time. Health Maintenance Dispo: Patient admitted for complicated UTI and pneumonia requiring IV antibiotics Diet: Cardiac diet DVT/PPx: Lovenox GI ppx: Protonix Lines: PIV Code Status: Full code This patient care was discussed with my attending Dr. Bryan Gustafson MD PGY-2 Disclaimer: Minor errors in livestock farm workers may be present since this note was dictated by speech recognition software. Attending Provider Attestation/Addendum Jody Mitchell, , attest that I was physically present for the browning portions of the service and evaluated the patient with the resident and I reviewed and discussed the case with the resident and agree with the resident's findings and plans of care as documented above Patient seen and evaluated this AM. Patient denies any chest pain or shortnesss of breath. at bedside. Patient is on room air and in no respiratory distress. Patient states he is feeling improved, but having progressive weakness. Patient reported having dysuria for the past week. Pt has had hx of UTIs and nephrolithiasis in the past. Will order CT of abdomen to rule out any obstruction or stones. He also reports some abdominal pain. Will continue with IV abx and await final urine cultures.
[2024-11-03] MEDS: cefTRIAXone 1,000 MG in SODIUM CHLORIDE 0.9% (Popper) 50 ML 100 MG IV (20:35)
[2024-11-03] MEDS: SODIUM CHLORIDE 0.9% 1000 ML 1,000 ML 75 ML IV (20:38)
[2024-11-03] MEDS: AZITHROMYCIN INJ 500 MG in SODIUM CHLORIDE 0.9% 250 ML 250 ML 250 MG IV (22:05)
[2024-11-04] VITALS (16 sets, daily range): BP systolic 109–143; BP diastolic 56–93; PULSE 65–88; RESP 13–22; TEMP 36.2–36.6; O2SAT 92–98
--- NOTE | 2024-11-04 | XR_ITS ---
Examination: Ultrasound-guided needle placement right basilic vein. Dual-lumen central line placement (PICC line). Fluoroscopy AP chest, portable, single view Exam date and time:November 04, 2024 1106 hours INDICATIONS: Need for long-term intravenous antibiotic therapy A timeout was completed verifying correct patient, procedure, site, positioning Informed consent provided Technique: The patient's site was prepped and draped in sterile fashion. Maximum Sterile Barrier Technique used including cap, mask, sterile gown, sterile gloves, and sterile full body drape. If ultrasound technique used: sterile gel and sterile probe covers. Hand Hygiene performed using proper scrub, soap and water, or alcohol-based hand rub. Ultrasound site right apparatus utilized to confirm patency of the right basilic vein Utilizing ultrasonographic guidance successful 21-gauge needle puncture into the right basilic vein Ultrasound images recorded and stored. 5 cc 1% lidocaine administered for local anesthetic. Successful micropuncture with a 21-gauge needle is performed. 0.18 wire guide is then introduced into the SVC under fluoroscopic guidance. Dual-lumen catheter dilator is then introduced, followed by the catheter in the SVC and proper position under fluoroscopic guidance. Successful aspiration of blood and flushing with heparinized saline is then performed in the 2 venous limbs. The catheter sutured in place. Findings: Under fluoroscopy, the tip of the catheter is in good position in the vena cava. Portable chest x-ray, post line placement is ordered. Estimated blood loss 3 cc The patient tolerated the procedure well and was in stable and satisfactory condition at completion of the procedure Impression: Successful ultrasound-guided needle placement right basilic vein Successful placement of dual lumen central line, percutaneous Fluoroscopy 0.1 minute radiation dose 1.18 milligray 1 fluoroscopic chest film. AP chest completion procedure demonstrates satisfactory position central line. May use central line.
[2024-11-04] MEDS: ALBUTEROL/IPRATROPIUM (Duoneb) RT SOL 3 ML NEBU INH ×4 (01:01→18:55)
[2024-11-04 05:30] LABS: Basophils # (Auto) 0.1 Thou/mm3 (0.0-0.2); Basophils % (Auto) 1 % (0-2.5); Eosinophils # (Auto) 0.1 Thou/mm3 (0.0-0.5); Eosinophils % (Auto) 1 % (0-10); Hemoglobin 11.6 g/dL (13.5-16.0); Immature Granulocytes % (Auto) 8 % (0-0); Immature Granulocytes Auto 0.75 Thou/mm3 (0.00-0.00); Lymphocytes # (Auto) 3.1 Thou/mm3 (1.0-4.8); Lymphocytes % (Auto) 32 % (10-50); Mean Corpuscular HGB Conc 34.1 g/dl (31.0-37.0); Mean Corpuscular Hemoglobin 32.5 pg (25.0-35.0); Mean Corpuscular Volume 95 fL (80-100); Monocytes # (Auto) 0.7 Thou/mm3 (0.0-0.8); Monocytes % (Auto) 7 % (0-12); Neutrophils # (Auto) 4.8 Thou/mm3 (1.8-7.7); Neutrophils % (Auto) 50 % (37-80); Nucleated Red Blood Cell % 0 /100 WBC (0); Platelet Count 201 Thou/mm3 (140-440); RDW Standard Deviation 42.6 fL (35.1-43.9); Red Blood Count 3.57 Miln/mm3 (4.50-5.90); White Blood Count 9.5 Thou/mm3 (3.8-10.6)
[2024-11-04 06:32] LABS: Anion Gap 12 (7-16); BUN/Creatinine Ratio 9 Ratio (12-20); Blood Urea Nitrogen 8 mg/dL (9-23); Calcium 8.5 mg/dL (8.3-10.6); Chloride 110 mMol/L (98-107); Creatinine (Component) 0.9 mg/dL (0.6-1.3); Estimated Creatinine Clearance 74.9 mL/min (>60); Glucose 114 mg/dL (74-106); Osmolality,Calculated 286 (275-295); Potassium 3.4 mMol/L (3.4-5.1); Sodium 144 mMol/L (136-145); eGFR > 60 See Note
[2024-11-04] MEDS: POTASSIUM CHLORIDE 10% 20 MEQ/15 ML UDC PO (08:59)
[2024-11-04] MEDS: NICOTINE PATCH 14 MG/24 HR PATCH.TD24 TOP (08:59)
[2024-11-04] MEDS: ENOXAPARIN SOD INJ 40 MG/0.4 ML SYRINGE SC (08:59)
[2024-11-04] MEDS: TAMSULOSIN HCL 0.4 MG CAPSULE PO ×2 (08:59→21:24)
[2024-11-04 10:19] LABS: Magnesium 1.8 mg/dL (1.6-2.6)
[2024-11-04] MEDS: HEPARIN SOD LOCK SYR 100 UNIT/ML 500 UNIT STFIELD (11:52)
[2024-11-04] MEDS: LIDOCAINE INJ PF 1% 30 ML VIAL 5 ML INFL (11:52)
--- NOTE | 2024-11-04 12:00 | PC.SS ---
Follow up note: SS spoke to dtrShalini and informed her pt is requiring IV antibiotic until 11-10-24. Dtr states she can be taught how to administer IV antibiotic. Dtr states she has preference for HH Services. SS provided dtr with SS phone number to contact once she has the name of the HH agency she preferrers.
--- NOTE | 2024-11-04 12:15 | PC.NURSE ---
Gave report to Papa DAWN, Papa assumed care.
--- NOTE | 2024-11-04 12:27 | PC.NURSE ---
1202 patient is awake alert, breathing unlabored, s/p picc line insertion to right upper arm, report has been given to Niko RN, patient transferred to [facility] room 356. May use picc line per MD
--- NOTE | 2024-11-04 12:44 | PC.SS ---
Addendum entered by January Yates 11/04/24 13:46: SS has sent DME order for wheelchair and commode using [facility]. DME order for home O2 is pending O2 testing from bedside nurse. Original Note: SS met with pt and his . Pt is currently on 2 liters of O2. SS met with bedside nursePapa and explained pt is requiring O2 testing to qualify for home O2.
[2024-11-04] MEDS: MEROPENEM INJ 1,000 MG in SODIUM CHLORIDE 0.9% (Popper) 50 ML 100 MG IV ×2 (12:46→21:25)
--- NOTE | 2024-11-04 13:22 | PC.CC ---
Addendum entered and electronically signed by Caryn De Anda [facility] 11/05/24 14:50: Notified [facility] of discharge and sent discharge summary. SOC 11/06 Addendum entered and electronically signed by Caryn De Anda [facility] 11/05/24 11:17: Updated [facility] and [facility] on discharge ordered for today. Addendum entered and electronically signed by Caryn De Anda [facility] 11/04/24 13:56: Discussed HH options with Yolie herndon who selected [facility]. Booked [facility] and [facility] Original Note: [facility] has accepted patient for [facility]x. Family's HH preference is [facility] but they are unable to accept due to staffing. Referrals sent to all facilities.
--- NOTE | 2024-11-04 13:48 | ESPR_ITS ---
<Statement entered by Alexey uGstafson MD - 11/05/24 07:38> I discussed with and supervised the international marketing coordinator physician involved in the care of this patient. Patient assessment and plan was discussed with entire medicine team, including my attending. I agree with the assessment and plan as documented by international marketing coordinator doctor. Patient care was discussed with my attending physician Dr. Bryan Gustafson, PGY-2 Documentation for date of: 11/04/24 Subjective Subjective Interval history: Patient was seen and examined at bedside this AM. No acute exents overnight. Patient tolerating diet, adequate urine output and mentation is at baseline. Patient endorses improvement of fatigue. However patient says he developed diarrhea overnight, watery, 6 episodes, green and sticky. Urine culture from 11/02 grew ESBL. Discontinue ceftriaxone and azithromycin. Started patient on meropenem 1 g IV Q8 hourly Will send stool sample for C. difficile, WBCs and culture. Exam Vital Signs Temp Pulse Resp BP Pulse Ox O2 Del Method O2 Flow Rate 98 F 74 20 130/73 98 Room Air 2 11/04/24 11:06 11/04/24 12:27 11/04/24 12:27 11/04/24 12:00 11/04/24 12:27 11/04/24 12:00 11/04/24 12:27 Narrative Exam Constitutional Alert, oriented x 3 and comfortable. Elderly male HEENT Vision grossly intact. Patent nares. Trachea midline Respiratory Chest normal on inspection and clear auscultation bilaterally Cardiovascular S1 and S2 audible, RRR. No murmurs carotid bruit. No gross JVD. Abdominal Soft and non tender to palpation in all quadrants. BS + Genitourinary No bladder tenderness, no flank pain. Normal to palpation Musculoskeletal Extremities tone within normal limits. No LE edema. Neurological CN II - XII grossly intact. Extremity motor and sensation grossly intact. Skin Warm, dry and intact. No apparent lesions. Psychiatric Patient has good affect, is cooperative Objective Labs 11/04/24 04:28 11/04/24 04:28 Labs: Laboratory Results - last 24 hr 11/04/24 04:28 WBC 9.5 D RBC 3.57 L Hgb 11.6 L Hct 34.0 L MCV 95 MCH 32.5 MCHC 34.1 RDW Std Deviation 42.6 Plt Count 201 D Neut % (Auto) 50 Lymph % (Auto) 32 [place] % (Auto) 7 Eos % (Auto) 1 Baso % (Auto) 1 Neut # (Auto) 4.8 Lymph # (Auto) 3.1 [place] # (Auto) 0.7 Eos # (Auto) 0.1 Baso # (Auto) 0.1 Immature Gran # (Auto) 0.75 H Absolute Nucleated RBC 0.00 Immature Gran % 8 H Nucleated RBC % 0 Sodium 144 Potassium 3.4 Chloride 110 H Carbon Dioxide 22.0 Anion Gap 12 BUN 8 L Creatinine 0.9 Estim Creat Clear Calc 74.9 eGFR > 60 BUN/Creatinine Ratio 9 L Glucose 114 H Calculated Osmolality 286 Calcium 8.5 Phosphorus 3.0 Magnesium 1.8 Quality Measures Quality Measures none Advance care planning discussed with:: patient Assessment & Plan Assessment Current Active Medications: Generic Name Dose Route Start Last Admin Trade Name Freq PRN Reason Stop Dose Admin Acetaminophen 650 mg 11/02/24 21:09 Acetaminophen 325 Mg Tablet PO 12/02/24 21:08 Q6H PRN Fever >101.5 Albuterol/Ipratropium 3 ml 11/02/24 21:35 11/04/24 12:27 Albuterol/Ipratropium (Duoneb) Rt Roseann 3 Ml Nebu INH 12/02/24 21:34 3 ml Q6HRRT KECIA Administration Enoxaparin Sodium 40 mg 11/03/24 09:00 11/04/24 08:59 Enoxaparin Sod Inj 40 Mg/0.4 Ml Syringe SC 11/17/24 08:59 40 mg QDAY KECIA Administration Meropenem 1,000 mg/ Sodium 50 mls @ 100 mls/hr 11/04/24 10:00 11/04/24 12:46 Chloride IV 11/11/24 09:59 100 mls/hr Q8HR KECIA Administration Tamsulosin HCl 0.4 mg 11/03/24 09:00 11/04/24 08:59 Tamsulosin Hcl 0.4 Mg Capsule PO 12/03/24 08:59 0.4 mg BID KECIA Administration Plan 74-year-old male with PMHx of COPD (no home oxygen), HTN, BPH, nephrolithiasis, presenting with shortness of breath and cough. Admitted for pneumonia. #Complicated ESBL UTI UA positive for WBCs, LE, nitrites. Complains of dark urine for 2+ weeks, likely dehydrational. No dysuria, hematuria, urinary urgency or frequency. Urine culture from 11/02 grew ESBL. Discontinue ceftriaxone and azithromycin. Started patient on meropenem 1 g IV Q8 hourly Plan: ? Started on meropenem 1 g IV every 8 hourly on [11/04? ? PICC line insertion ? Upon discharge to convert to with open on IV via PICC line to complete course #Diarrhea Since hospitalization patient developed diarrhea which worsened overnight with 6 episodes described as watery, green and sticky. Denies any blood, melena DDx: Colitis, viral gastroenteritis, C. difficile, medication induced Plan: ? Stool studies ordered including C. difficile, stool for WBCs and culture #Community-acquired pneumonia - unlikely #COPD Presenting with 1 month of fatigue, SOB, cough and fever over the last week. Diagnosed with COPD last year, no home oxygen, uses inhaler. Wheezing and coarse breath sound bilaterally on exam. Has leukocytosis and elevated PRO-MARIANGEL on admission. CXR showed pneumonia bilaterally. PSI/PORT score indicates Risk Class III, 0.9-2.8% mortality. Patient denies SOB and cough. Lungs clear to auscultation. Plan: ? Discontinued CEFTRIAXONE and AZITHROMYCIN (11/02-11/04) ? Continue DuoNebs q.6h. #BPH Abdomen pelvis CT was negative for prostatomegaly Plan: ? Continue home TAMSULOSIN 0.4 mg BID. #Tobacco use 40+ smoking history, quit when he was diagnosed with COPD last year. Currently smokes 1 to 2 cigarettes every other day. First-degree relative (brother) with lung cancer. Currently working on quitting smoking. Plan: ?Nicotine patch 14 Mg topical daily ? Patient extensively counseled on smoking cessation #Hx nephrolithiasis Abdomen pelvis CT was negative for renal calculi and hydronephrosis ? Follow-up with urology outpatient. ? No indication for intervention at this time. Health maintenance: Disposition: IV antibiotics. Pending Stool studies Diet: Cardiac Lines: pIVs GI Prophylaxis: None Thrombo Prophylaxis: Enoxaparin Code status: FULL CODE Attending Provider Attestation/Addendum Jody Mitchell DO, attest that I was physically present for the browning portions of the service and evaluated the patient with the resident and I reviewed and discussed the case with the resident and agree with the resident's findings and plans of care as documented above Patient seen and evaluated this AM. He is complaining of diarrhea since starting antibiotics. Will check for C.diff. Cultures reveal ESBL E.coli. Will place PICC line for ertapenem 1g daily and HHC. Patient denies any chest pain or shortness of breath. Anticipate DC within next 24hrs.
--- NOTE | 2024-11-04 14:06 | PC.NURSE ---
Patient at 94 oxygen on RA in bed. When ambulating down fletcher oxygen stayed at 90-91% and HR went up to 102. Patient was able to ambulate one lap around the [facility] floor. When getting back to room felt a little tired and was still at 90% oxygen on RA.
[2024-11-04 14:36] LABS: Stool for WBCs Negative (Negative)
--- NOTE | 2024-11-04 14:37 | PC.SS ---
SS spoke to dtr and provided her with DME options for [facility] who is considering, [facility] declined, [facility] declined, [facility] in [place] was pending. Daughter's choice is [facility] due to accepting. Dtr is now requesting a 4 wheel with seat, rollator walker instead of wheelchair. SS has sent updated DME inquiry using [facility]. Dtr is aware pt does not qualify for home O2. Cdiff test is pending.
--- NOTE | 2024-11-04 15:16 | PC.SS ---
SS was informed by Amy at [facility] pt does not qualify for home O2 but physician is able to order an Overnight Oximetry test. SS spoke to Dr. Adams and she is agreeable. Per Amy, they will follow up with PCP. SS has sent updated DME form for Overngiht Oximetry test to [facility] using [facility].
[2024-11-05] VITALS (9 sets, daily range): BP systolic 109–132; BP diastolic 78–84; PULSE 63–93; RESP 16–20; TEMP 36.4–36.9; O2SAT 93–97
[2024-11-05] MEDS: ALBUTEROL/IPRATROPIUM (Duoneb) RT SOL 3 ML NEBU INH ×2 (01:41→06:52)
[2024-11-05 05:09] LABS: Basophils # (Auto) 0.1 Thou/mm3 (0.0-0.2); Basophils % (Auto) 1 % (0-2.5); Eosinophils # (Auto) 0.2 Thou/mm3 (0.0-0.5); Eosinophils % (Auto) 2 % (0-10); Hematocrit 35.2 % (41.0-53.0); Hemoglobin 12.2 g/dL (13.5-16.0); Immature Granulocytes % (Auto) 5 % (0-0); Immature Granulocytes Auto 0.47 Thou/mm3 (0.00-0.00); Lymphocytes # (Auto) 2.9 Thou/mm3 (1.0-4.8); Lymphocytes % (Auto) 29 % (10-50); Mean Corpuscular HGB Conc 34.7 g/dl (31.0-37.0); Mean Corpuscular Hemoglobin 33.2 pg (25.0-35.0); Mean Corpuscular Volume 96 fL (80-100); Monocytes # (Auto) 0.6 Thou/mm3 (0.0-0.8); Monocytes % (Auto) 6 % (0-12); Neutrophils % (Auto) 58 % (37-80); Nucleated Red Blood Cell % 0 /100 WBC (0); Platelet Count 342 Thou/mm3 (140-440); Red Blood Count 3.68 Miln/mm3 (4.50-5.90); White Blood Count 10.2 Thou/mm3 (3.8-10.6)
[2024-11-05] MEDS: MEROPENEM INJ 1,000 MG in SODIUM CHLORIDE 0.9% (Popper) 50 ML 100 MG IV (05:20)
[2024-11-05 05:30] LABS: Anion Gap 10 (7-16); BUN/Creatinine Ratio 6 Ratio (12-20); Blood Urea Nitrogen 5 mg/dL (9-23); Carbon Dioxide 25.8 mMol/L (20.0-31.0); Chloride 107 mMol/L (98-107); Creatinine (Component) 0.9 mg/dL (0.6-1.3); Estimated Creatinine Clearance 74.9 mL/min (>60); Glucose 113 mg/dL (74-106); Magnesium 1.8 mg/dL (1.6-2.6); Osmolality,Calculated 283 (275-295); Potassium 3.4 mMol/L (3.4-5.1); Sodium 143 mMol/L (136-145); eGFR > 60 See Note
[2024-11-05] MEDS: ENOXAPARIN SOD INJ 40 MG/0.4 ML SYRINGE SC (08:35)
[2024-11-05] MEDS: NICOTINE PATCH 14 MG/24 HR PATCH.TD24 TOP (08:36)
[2024-11-05] MEDS: TAMSULOSIN HCL 0.4 MG CAPSULE PO (08:36)
[2024-11-05 09:35] LABS: Clostridium Difficile PCR Positive (Negative)
--- NOTE | 2024-11-05 10:02 | PC.SS ---
Follow up note: Pending CDIFF results. Pt will return home upon dc.
--- NOTE | 2024-11-05 11:34 | ESDS_ITS ---
<Statement entered by Jody Adams DO - 11/06/24 07:48> I, Jody Adams DO, attest that I was physically present for the browning portions of the service and evaluated the patient with the resident and I reviewed and discussed the case with the resident and agree with the resident's findings and plans of care as documented above <Statement entered by Alexey Gustafson MD - 11/05/24 15:58> I discussed with and supervised the international specialist physician involved in the care of this patient. Patient assessment and plan was discussed with entire medicine team, including my attending. I agree with the assessment and plan as documented by international specialist doctor. Patient care was discussed with my attending physician Dr. Bryan Gustafson, PGY-2 Planned Discharge Date 11/05/24 DS: Providers Provider Date of admission: 11/02/24 21:09 Primary care physician: Tex De Jesus MD Admitting Provider: Ramon Luna MD Attending Provider on Admission: Ramon Luna MD Consults: 11/03/24 00:19 Referral Physical Therapy Routine Comment: Physician Instructions: Referral Registered Dietitian Routine Comment: Referral Respiratory Therapy Routine Comment: Attending Provider on DC: Jody Adams DO Discharging Provider: Ar Padgett MD DS: Diagnosis Problem List Completed Was Problem List Reviewed/Reconciled?: Yes Hospital Course Hospital Course Hospital course: 74-year-old male with PMHx of COPD (no home oxygen), HTN, BPH, nephrolithiasis, presenting with shortness of breath and cough. Admitted for pneumonia. Patient presented with shortness of breath and cough, his chest x-ray showed bibasilar consolidation suspicious for pneumonia. Initially he was empirically treated with ceftriaxone 1 g IV daily and azithromycin 250 Mg IV daily from 11/02 - 11/04. Patient's symptoms rapidly improved and community-acquired pneumonia deemed unlikely upon discharge. With regards to ESBL UTI, his urine culture from 11/02/2024 grew ESBL. Ceftriaxone and azithromycin were discontinued and patient was started on meropenem 1 g IV Q8 hourly from [11/04 - 11/05]. Patient's symptoms of dysuria and increased urinary frequency subsided by the time of discharge. He was discharged on a 6-day course of a dependent 1 g IV daily to complete via PICC line at home with home health. For patient's diarrhea, stool studies including C. difficile, stool for WBCs and cultures were ordered. C. difficile was positive and patient was discharged on fidaxomicin 200 Mg p.o. twice daily for 10 days. Patient was also counseled on eating yogurt and probiotics. With regards to patient's chronic nicotine dependence he was extensively counseled and advised against smoking. Patient agreed to try to stop. All patient's labs are now returning to his baseline. Patient is now clinically stable for discharge to home with home health. Discharge diagnoses: 1. Complicated ESBL UTI?resolving 2. C. difficile infection?resolving 3. Community-acquired pneumonia?unlikely 4. COPD 5. BPH 6. Nicotine dependence 7. History of nephrolithiasis Discharge plan: - You have been started on an IV antibiotic, Ertapenem for your urine infection. Continue the course with home health until 11/10/2024. - You have been started on an antibiotic, Fidaxomicin for your diarrhea. Take one tablet twice a day for the next 10 days to complete the course - Continue the rest of your home medication as before - Follow up with your primary care physician within 1 week of discharge. If you do not have a primary care physician, please follow up with the [facility] Residents clinic ([phone]) ? If you experience any new, worsening or persistent symptoms either call your primary doctor, or dial 911 or present to the emergency department. We are grateful to be able to participate in Mr. Henning's care. We wish him the best. Plan of care discussed with Attending Dr. Adams and PGY2 Dr. Sj Padgett MD PGY 1 Time spent discussing smoking cessation with patient: more than 10 minutes (15) Time Spent with Patient Time attestation: Total time spent providing and/or coordinating discharge services: Time spent: Greater than 30 minutes (37) Home Health Home Health Referral Orders: 11/04/24 09:52 Home Health Referral Routine Reason For Exam: UTI Home-Bound The patient must either because of illness or injury, need the aid of supportive devices such as crutches, canes, wheelchairs, and walkers; the use of special transportation; or the assistance of another person in order to leave their place of residence; OR have a condition such that leaving his or her home is medically contraindicated. In addition, the patient also meets the following criteria: patient is normally unable to leave the home and leaving home requires considerable taxing effort. Addendum to Home Health Certification Practitioner's Certification: I certify that the patient has been under my care in the hospital and the care of attending physician (see below). We had a mdal-ta-mfda encounter on (see date below). My clinical findings indicate that the patient is home bound per the above criteria and the Home Health Services noted in these orders are medically necessary. The primary reason for the daec-jo-mhgp encounter is related to the fact that the patient requires home health services. Date Certifying [place] Physician Encounter: 11/02/24 Physician's Name who will Assume Oversight for Services: Tex De Jesus Physician's Phone No.who will Assume Oversight for Service: CRICKET COACH - Community Resources: No PT to Evaluate: Yes PT to evaluate and provide a treatmnet plan to increase patient's mobility and strength. Wound Care: No IV Therapy: Yes IV Medication: Ertapenem IV Dose: 1g IV Frequency: daily IV Stop Date: 11/10/24 Discontinue PICC Line Once Treatment Complete: Yes RN Safety Evaluation: Yes RN to evaluate and create a plan of care that will produce positive outcomes. Palliative Treatment: No Palliative treatment and evaluate the need for hospice. Home Health Aide - Personal Care: Yes Home Health Aide to assist with any ADL's. Exam Vital Signs Temp Pulse Resp BP Pulse Ox O2 Del Method O2 Flow Rate 98.0 F 90 17 111/81 93 L Room Air 1 11/05/24 07:49 11/05/24 07:49 11/05/24 07:49 11/05/24 07:49 11/05/24 07:49 11/05/24 07:49 11/05/24 04:00 Narrative Exam Constitutional Alert, oriented x 3 and comfortable. Elderly male HEENT Vision grossly intact. Patent nares. Trachea midline Respiratory Chest normal on inspection and clear auscultation bilaterally Cardiovascular S1 and S2 audible, RRR. No murmurs carotid bruit. No gross JVD. Abdominal Soft and non tender to palpation in all quadrants. BS + Genitourinary No bladder tenderness, no flank pain. Normal to palpation Musculoskeletal Extremities tone within normal limits. No LE edema. Neurological CN II - XII grossly intact. Extremity motor and sensation grossly intact. Skin Warm, dry and intact. No apparent lesions. Psychiatric Patient has good affect, is cooperative Discharge Plan Plan Patient Disposition: Home w/HOME HEALTH Patient condition on transfer: Stable Care Plan Goals: - You have been started on an IV antibiotic, Ertapenem for your urine infection. Continue the course with home health until 11/10/2024. - You have been started on an antibiotic, Fidaxomicin for your diarrhea. Take one tablet twice a day for the next 10 days to complete the course - Continue the rest of your home medication as before - Follow up with your primary care physician within 1 week of discharge. If you do not have a primary care physician, please follow up with the [facility] Residents clinic ([phone]) ? If you experience any new, worsening or persistent symptoms either call your primary doctor, or dial 911 or present to the emergency department. - Le louise comenzado a administrar un antibi?iraida intravenoso, Ertapenem, para jimenez infecci?n de orina. Continuar el curso con deyvi en el [facility] hasta el 10/11/2024. - Le louise comenzado a pio un antibi?iraida, Fidaxomicina, para jimenez diarrea. [place] norberto tableta dos veces al d?a yuriy los pr?ximos 10 d?as para completar el curso. - Contin?e con el gay de jimenez medicaci?n casera sonny antes. - Charissa un seguimiento con jimenez m?dico de atenci?n primaria dentro de la semana posterior al obdulia. Si no tiene un m?dico de atenci?n primaria, charissa seguimiento con la cl?rene de residentes de [facility] ([phone]) ? Si experimenta alg?n s?ntoma nuevo, que empeora o persistente, llame a jimenez m?dico de atenci?n primaria, jarad el 911 o pres?ntese en el departamento de emergencias. Prescriptions/Referrals Prescriptions/Med Rec: New fidaxomicin 200 mg tablet 200 mg PO Q12H Qty: 28 0RF Continued tamsulosin 0.4 mg Capsule 0.4 mg PO BID finasteride 1 mg Tablet 1 mg PO QDAY Discontinued hydrocodone-acetaminophen 5-325 mg tablet 1 tab PO Q6H MDD 4 PRN (Reason: pain) Qty: 20 0RF ciprofloxacin HCl [Cipro] 500 mg tablet 500 mg PO BID Qty: 14 0RF Referrals: Tex De Jesus MD [Primary Care Provider] - Patient/Caregiver Discharge Instructions Discharge Activity: activity as tolerated Education Materials: Clostridium Difficile Infection, ED Urinary Tract Infections in Men Print Language: Azerbaijani Stand Alone Forms: Margarette Award Info., Patient Portal Info Letter Discharge Order Discharge Orders: Discharge (Routine); Ordered 11/05/24 Ordered By: Ar Padgett Quality Discharge Quality Measures VTE prophylaxis
== END 2024-11-05 12:47 | disposition home health service (06) | DRG 194 ==
LOC: SERX 20:31 → SERHOLD 21:39 → S3NX 23:37
PROVIDERS: Nurse Practitioner Primary Care; Admitting Provider Internal Medicine; Emergency Provider Emergency Medicine; PCP Internal Medicine; Visit Provider Internal Medicine
DX: J18.9 Pneumonia, unspecified organism (principal); A04.72 Enterocolitis due to Clostridium difficile, not specified as recurrent; J44.0 Chronic obstructive pulmonary disease with (acute) lower respiratory infection; J44.1 Chronic obstructive pulmonary disease with (acute) exacerbation; N39.0 Urinary tract infection, site not specified; Z16.12 Extended spectrum beta lactamase (ESBL) resistance; N28.1 Cyst of kidney, acquired; N40.0 Benign prostatic hyperplasia without lower urinary tract symptoms; I10 Essential (primary) hypertension; F17.210 Nicotine dependence, cigarettes, uncomplicated; M19.90 Unspecified osteoarthritis, unspecified site; Z87.442 Personal history of urinary calculi; Z87.440 Personal history of urinary (tract) infections; Z79.899 Other long term (current) drug therapy; Z80.1 Family history of malignant neoplasm of trachea, bronchus and lung; Z87.19 Personal history of other diseases of the digestive system
CPT/HCPCS: 36415; 71046; 74176; 80048; 80053; 81001; 83605; 83615; 83690; 83735; 83880; 84100; 84145; 84484; 85025; 85610; 85730; 87015; 87040; 87045; 87046; 87077; 87086; 87186; 87205; 87400; 87493; 87811; 87899; 94640; 97162; A9270; C1751; C1894; J0456; J0696; J1642; J1650; J2185; J3480; J3490; J7030; J7040; J7050

== ENCOUNTER → 2024-12-02 | Outpatient (CLI) | payer MEDICARE, MEDICAID, SELFPAY ==
--- NOTE | 2024-12-02 09:35 | XR_ITS ---
Examination:Right hip AP, lateral, AP pelvis 3 views Technique: Hip AP lateral, AP pelvis, 3 views Exam date and time:December 02, 2024 0942 hours INDICATIONS: Hip pain lower back pain beginning 2 days ago. FINDINGS: Moderate osteopenia Moderate narrowing right and left hip joints No hip or pelvic fracture IMPRESSION: Moderate narrowing hip joints.
== END | disposition home or self-care (01) ==
PROVIDERS: PCP Internal Medicine; Referring Provider Orthopaedic Surgery; Visit Provider Orthopaedic Surgery
DX: M25.851 Other specified joint disorders, right hip (principal)
CPT/HCPCS: 73502

== ENCOUNTER → 2025-02-24 | Outpatient (CLI) | payer MEDICARE, MEDICAID, SELFPAY ==
--- NOTE | 2025-02-24 13:00 | XR_ITS ---
Examination: Steroid injection left hip joint with imaging guidance Fluoroscopy AP left hip single view. Exam date and time: February 24, 2025 1225 hours INDICATIONS: Left hip osteoarthritis left hip pain months Informed consent provided. Technique: A timeout was completed verifying correct patient, procedure, site, positioning. The patient was placed in supine position appropriate for the steroid injection The patient's site was prepped and draped in sterile fashion 5 cc 1% lidocaine administered locally for anesthesia. Sterile drape applied, maximum barrier sterile technique. Utilizing fluoroscopic guidance, 23-gauge needle placed in the left hip joint 1 cc Kenalog 40 in 5 cc 0.25% Marcaine introduced into the left hip joint The patient was in satisfactory and stable condition on completion of the procedure Attending radiologist was present for the entire procedure Estimated blood loss 0 cc. Impression: Successful steroid injection left hip joint with imaging guidance Fluoroscopy 0.1 minute radiation dose 1.18 milligray 1 spot fluoroscopic AP film left hip .
[2025-02-24] MEDS: BUPIVACAINE MPF 0.25% 30 ML VIAL EPID (13:20)
[2025-02-24] MEDS: TRIAMCINOLONE ACET INJ 40 MG/ML VIAL IM (13:23)
== END | disposition home or self-care (01) ==
PROVIDERS: PCP Internal Medicine; Referring Provider Orthopaedic Surgery; Visit Provider Orthopaedic Surgery
DX: M16.12 Unilateral primary osteoarthritis, left hip (principal)
CPT/HCPCS: 20610; 77002; J3301; J3490; J0665

== ENCOUNTER → 2025-03-10 | Outpatient (CLI) | payer MEDICARE, MEDICAID, SELFPAY ==
--- NOTE | 2025-03-10 17:00 | XR_ITS ---
Examination: CT chest, without intravenous contrast. Sagittal and coronal 2-D reconstructions. Exam date and time: March 10, 2025, 1700 hours Comparison 05/27/2024 INDICATIONS: Smoking history 50 years, 3 mm pulmonary nodule right upper lobe on CT chest 05/27/2024 CTDI:vol (mGy) 11.2. DLP: (mGycm) 435 Technique: Multiple 3.0 mm axial sections of the chest to been obtained. Bone and lung density settings are obtained. Sagittal and coronal 2-D reconstructions have been obtained. Low dose protocols were performed. One or more of the following dose reduction techniques were used; automated exposure control, adjustment of the mA and/or KV according to patient size, use of iterative reconstruction technique. Findings: Ascending thoracic aorta 4.0 cm Pulmonary artery segments do not show significant enlargement No paratracheal tracheobronchial or bronchopulmonary adenopathy. 2 mm pulmonary nodule posterior right upper lobe image 142 2 mm pulmonary nodule anterior right upper lobe image 183 4 mm pulmonary nodule right upper lobe image 195 Calcified granuloma in the left upper lobe No pneumonia or pulmonary edema Diffuse fatty infiltration throughout the liver, liver are mildly irregular in contour Spleen is not enlarged No pancreatic or adrenal mass Kidneys partially visualized and no hydronephrosis Interval pathologic appearing subacute compression fracture L1 vertebral body, sagittal image 127, reduction in height at least 70% with diffuse sclerosis IMPRESSION: Noncalcified pulmonary nodules as above, recommend continued 6 month follow-up CT chest without contrast Subacute pathologic appearing compression fracture L1 vertebral body, recommend MRI of lumbar spine follow-up pre and postcontrast to exclude osseous metastatic disease
== END | disposition home or self-care (01) ==
PROVIDERS: PCP Internal Medicine; Referring Provider Internal Medicine; Visit Provider Internal Medicine
DX: R91.8 Other nonspecific abnormal finding of lung field (principal); M48.56XA Collapsed vertebra, not elsewhere classified, lumbar region, initial encounter for fracture
CPT/HCPCS: 71250

== ENCOUNTER → 2025-04-05 | Outpatient (CLI) | payer MEDICARE, MEDICAID, SELFPAY ==
[2025-04-05 08:49] LABS: Basophils # (Auto) 0.0 Thou/mm3 (0.0-0.2); Basophils % (Auto) 0 % (0-2.5); Eosinophils # (Auto) 0.2 Thou/mm3 (0.0-0.5); Eosinophils % (Auto) 2 % (0-10); Hematocrit 43.5 % (41.0-53.0); Hemoglobin 14.6 g/dL (13.5-16.0); Immature Granulocytes Auto 0.04 Thou/mm3 (0.00-0.00); Lymphocytes # (Auto) 2.9 Thou/mm3 (1.0-4.8); Lymphocytes % (Auto) 30 % (10-50); Mean Corpuscular HGB Conc 33.6 g/dl (31.0-37.0); Mean Corpuscular Hemoglobin 32.9 pg (25.0-35.0); Mean Corpuscular Volume 98 fL (80-100); Monocytes # (Auto) 0.5 Thou/mm3 (0.0-0.8); Monocytes % (Auto) 5 % (0-12); Neutrophils # (Auto) 6.0 Thou/mm3 (1.8-7.7); Neutrophils % (Auto) 62 % (37-80); Nucleated Red Blood Cell # 0.00 Thou/mm3 (0.00-0.00); Nucleated Red Blood Cell % 0 /100 WBC (0); Platelet Count 202 Thou/mm3 (140-440); RDW Standard Deviation 44.7 fL (35.1-43.9); Red Blood Count 4.44 Miln/mm3 (4.50-5.90); White Blood Count 9.7 Thou/mm3 (3.8-10.6)
[2025-04-05 09:02] LABS: Glucose Estimated Average 105 mg/dL (80-131); Hemoglobin A1C 5.3 % Hgb (4.8-6.0)
[2025-04-05 09:19] LABS: Alanine Aminotransferase 16 U/L (10-49); Albumin, Serum 4.2 gm/dL (3.4-4.8); Albumin/Globulin Ratio 1.8 (1.2-2.2); Alkaline Phosphatase 101 U/L (46-116); Anion Gap 11 (7-16); Aspartate Amino Transferase 13 U/L (0-34); BUN/Creatinine Ratio 8 Ratio (12-20); Bilirubin,Total 0.7 mg/dL (0.3-1.2); Blood Urea Nitrogen 10 mg/dL (9-23); Calcium 8.8 mg/dL (8.3-10.6); Calcium (Corrected) 8.8 mg/dL (8.5-10.1); Carbon Dioxide 25.4 mMol/L (20.0-31.0); Cardiac Risk Estimate 4.0 RATIO (4.0-6.7); Chloride 109 mMol/L (98-107); Cholesterol 153 mg/dL (132-200); Creatinine (Component) 1.2 mg/dL (0.6-1.3); Globulin 2.4 gm/dL (2.3-3.5); Glucose 103 mg/dL (74-106); HDL Cholesterol 38 mg/dL (40-60); LDL Cholesterol,Calculated 100 mg/dL (0-130); Osmolality,Calculated 287 (275-295); Potassium 3.8 mMol/L (3.4-5.1); Sodium 145 mMol/L (136-145); Thyroid Stimulating Hormone 6.06 uIU/mL (0.55-4.78); Total Protein 6.6 gm/dL (5.7-8.2); Triglycerides 77 mg/dL (30-150); eGFR > 60 See Note
[2025-04-05 09:23] LABS: Prostate Specific Antigen 0.42 ng/mL (0-4.00)
[2025-04-05 09:44] LABS: Syphilis Nonreactive (Nonreactive)
== END | disposition home or self-care (01) ==
LOC: COPL 07:53
PROVIDERS: PCP Internal Medicine; Referring Provider Internal Medicine; Visit Provider Internal Medicine
DX: R91.8 Other nonspecific abnormal finding of lung field (principal); Z11.3 Encounter for screening for infections with a predominantly sexual mode of transmission; Z11.59 Encounter for screening for other viral diseases; Z12.5 Encounter for screening for malignant neoplasm of prostate; Z13.6 Encounter for screening for cardiovascular disorders; Z79.899 Other long term (current) drug therapy
CPT/HCPCS: 36415; 80053; 80061; 80074; 83036; 84153; 84443; 85025; 86780

== ENCOUNTER → 2025-04-07 | Outpatient (CLI) | payer MEDICARE, MEDICAID, SELFPAY ==
[2025-04-07 11:30] LABS: Free T3 2.8 pg/mL (2.3-4.2); Free T4 (Free Thyroxine) 1.07 ng/dL (0.89-1.76)
== END | disposition home or self-care (01) ==
LOC: COPL 10:21
PROVIDERS: PCP Internal Medicine
DX: R79.89 Other specified abnormal findings of blood chemistry (principal)
CPT/HCPCS: 36415; 84439; 84481

== ENCOUNTER → 2025-04-27 | Outpatient (CLI) | payer MEDICARE, MEDICAID, SELFPAY ==
--- NOTE | 2025-04-27 11:33 | EKG_ITS ---
[facility] Test Date: 2025-04-27 Pat Name: GREG ZIEGLER Department: Room: - Gender: Male [employer] Officer: AA : 1950 Requested By: Aleksandar Cummings ([facility]) Order Number: [id number] Reading MD: Aleksandar Cummings ([facility]) Measurements Intervals [place] Rate: 52 P: 52 [place]: 165 QRS: 10 QRSD: 102 T: 58 QT: 415 QTc: 389 Interpretive Statements SINUS BRADYCARDIA NONSPECIFIC T-WAVE ABNORMALITY Compared to ECG 11/04/2024 08:37:29 T-wave abnormality now present Sinus rhythm no longer present /store/S0/[id number].pdf
== END | disposition home or self-care (01) ==
PROVIDERS: PCP Internal Medicine
DX: Z01.818 Encounter for other preprocedural examination (principal)
CPT/HCPCS: 93005

== ENCOUNTER → 2025-04-27 | Outpatient (CLI) | payer MEDICARE, MEDICAID, SELFPAY ==
--- NOTE | 2025-04-27 10:28 | XR_ITS ---
Examination: PA lateral chest 2 views TECHNIQUE: Upright PA lateral chest 2 views Date and time: April 27, 2025, 10:[address] chest March 10, 2025, chest x-ray November 02, 2024 INDICATIONS: Preop hip surgery. FINDINGS: COPD with moderate hyperexpansion Stable scarring at the lung bases. Mild prominence left ventricle. Stable granuloma left lower lobe. No interval pneumonia or pulmonary edema. Prominent osteopenia IMPRESSION: COPD with moderate hyperexpansion No pneumonia or pulmonary edema
[2025-04-27 11:11] LABS: Collection Type, Urine Clean Catch
[2025-04-27 11:37] LABS: Basophils # (Auto) 0.1 Thou/mm3 (0.0-0.2); Basophils % (Auto) 1 % (0-2.5); Eosinophils # (Auto) 0.2 Thou/mm3 (0.0-0.5); Eosinophils % (Auto) 2 % (0-10); Hematocrit 47.3 % (41.0-53.0); Hemoglobin 15.4 g/dL (13.5-16.0); Immature Granulocytes Auto 0.05 Thou/mm3 (0.00-0.00); Lymphocytes # (Auto) 3.6 Thou/mm3 (1.0-4.8); Lymphocytes % (Auto) 35 % (10-50); Mean Corpuscular HGB Conc 32.6 g/dl (31.0-37.0); Mean Corpuscular Hemoglobin 33.4 pg (25.0-35.0); Mean Corpuscular Volume 103 fL (80-100); Monocytes # (Auto) 0.6 Thou/mm3 (0.0-0.8); Monocytes % (Auto) 5 % (0-12); Neutrophils # (Auto) 5.9 Thou/mm3 (1.8-7.7); Neutrophils % (Auto) 57 % (37-80); Nucleated Red Blood Cell # 0.00 Thou/mm3 (0.00-0.00); Nucleated Red Blood Cell % 0 /100 WBC (0); Platelet Count 246 Thou/mm3 (140-440); RDW Standard Deviation 46.4 fL (35.1-43.9); Red Blood Count 4.61 Miln/mm3 (4.50-5.90); White Blood Count 10.3 Thou/mm3 (3.8-10.6)
[2025-04-27 11:47] LABS: Glucose Estimated Average 105 mg/dL (80-131); Hemoglobin A1C 5.3 % Hgb (4.8-6.0); INR 1.0 (0.9-1.3); Partial Thromboplastin Time 27.1 Seconds (22.0-36.0); Prothrombin Time 11.1 Seconds (9.0-12.2)
[2025-04-27 11:50] LABS: Albumin, Serum 4.4 gm/dL (3.4-4.8); Anion Gap 9 (7-16); BUN/Creatinine Ratio 9 Ratio (12-20); Blood Urea Nitrogen 12 mg/dL (9-23); Calcium 10.1 mg/dL (8.3-10.6); Carbon Dioxide 28.3 mMol/L (20.0-31.0); Chloride 110 mMol/L (98-107); Creatinine (Component) 1.3 mg/dL (0.6-1.3); Glucose 97 mg/dL (74-106); Osmolality,Calculated 292 (275-295); Potassium 4.2 mMol/L (3.4-5.1); Sodium 147 mMol/L (136-145); eGFR 58 See Note
[2025-04-27 11:53] LABS: Bilirubin,Urine Negative (Negative); Blood,Urine Trace (Negative); Clarity,Urine Clear (Clear/Hazy); Color,Urine Lt-Yellow (Lt Yel-Yel); Glucose, Urine Negative (Negative); Ketones,Urine Negative (Negative); Leukocyte Esterase,Urine Positive (Negative); Nitrite,Urine Negative (Negative); PH,Urine 6.5 (5.0-7.0); Protein,Urine Negative (Neg - Trace); RBC,Urine 7 /hpf (0-3); Specific Gravity,Urine 1.018 (1.001-1.035); Squamous Epithelial Cell,Urine 1 /hpf (0-5); Urobilinogen,Urine Negative mg/dL (0.0-1.0); WBC,Urine 2 /hpf (0-5)
== END | disposition home or self-care (01) ==
LOC: CDIM 09:54 → COPL 10:51
PROVIDERS: PCP Internal Medicine
DX: Z01.818 Encounter for other preprocedural examination (principal); J44.9 Chronic obstructive pulmonary disease, unspecified; J98.4 Other disorders of lung; Z13.6 Encounter for screening for cardiovascular disorders; Z79.899 Other long term (current) drug therapy
CPT/HCPCS: 36415; 71046; 80048; 81001; 82040; 83036; 85025; 85610; 85730

== ENCOUNTER → 2025-05-20 | Outpatient (CLI) | payer MEDICARE, MEDICAID, SELFPAY ==
--- NOTE | 2025-05-20 14:25 | XR_ITS ---
Examination:Right hip AP, lateral, AP pelvis 3 views Technique: Hip AP lateral, AP pelvis, 3 views Exam date and time:May 20, 2025 1428 hours INDICATIONS:: Status post right hip replacement FINDINGS: Total right hip arthroplasty. Satisfactory alignment. Moderate narrowing left hip joint. Prominent osteopenia IMPRESSION: Total right hip arthroplasty with satisfactory alignment. .
== END | disposition home or self-care (01) ==
LOC: CDIM 14:07
PROVIDERS: PCP Internal Medicine; Referring Provider Orthopaedic Surgery; Visit Provider Orthopaedic Surgery
DX: Z96.641 Presence of right artificial hip joint (principal)
CPT/HCPCS: 73502